=== PATIENT | female | born 1980 | race African-American/Black ===

== ENCOUNTER 2021-06-19 14:17 | Outpatient (CLI) | payer OTHER, SELFPAY | END 2021-06-19 14:18 | disposition home or self-care (01) | PROVIDERS: Visit Provider Nurse Practitioner Family | DX: H93.13 Tinnitus, bilateral (principal) | CPT/HCPCS: 92557; 92567 ==

== ENCOUNTER 2021-07-27 18:00 | Emergency (ER) | payer OTHER, SELFPAY ==
--- NOTE | ~2021-07-27 | XR_ITS ---
EXAMINATION: XR knee LT min 4V DATE: 07/27/2021 18:30 INDICATION: Left knee pain and numbness TECHNIQUE: Four views of the left knee were obtained. COMPARISON: None. FINDINGS: Alignment is normal. No fracture or osteochondral lesion. Joint spaces are normal with no e rosions. No joint effusion/synovitis. Soft tissues are unremarkable. IMPRESSION: 1. No acute osseous abnormality. Reviewed, dictated and finalized at location F.
--- NOTE | 2021-07-27 18:03 | ED.LOWEXIN ---
HPI - Extremity Injury (Lower) General Chief Complaint: Extremity Injury, Lower Stated Complaint: Lt Knee Pain/Numbness Time Seen by Provider: 07/27/21 18:15 Source: patient Mode of arrival: ambulatory Limitations: no limitations History of Present Illness HPI Narrative: Ms. Hutton is a 41-year-old female patient presenting to the clinic today with complaints of left knee pain and numbness going down her leg. She reports that this has been getting worse over the last 2 days however symptoms been ongoing for approximately 2 weeks now. She reports that this is now causing her to fall and she has had 2 falls last night and one fall this morning. She reports also that she is having difficulty walking upstairs and pain with squatting. Reports that 2 weeks ago she was having numbness and tingling in both feet. She denies any history of diabetes. Has had steroid knee injections to this knee before. Related Data Home Medications Medication Instructions Recorded Confirmed gabapentin 300 mg PO DAILY 07/27/21 07/27/21 hydroxychloroquine 200 mg PO DAILY 07/27/21 07/27/21 levetiracetam 500 mg PO BID 07/27/21 07/27/21 modafinil 200 mg PO DAILY 07/27/21 07/27/21 montelukast 10 mg PO DAILY 07/27/21 07/27/21 spironolacton-hydrochlorothiaz 1 tablet PO DAILY 07/27/21 07/27/21 sumatriptan succinate 100 mg PO DAILY 07/27/21 07/27/21 Allergies Allergy/AdvReac Type Severity Reaction Status Date / Time No Known Allergies Allergy Verified 07/27/21 18:19 Review of Systems Review of Systems: Pertinent positives per HPI. Patient denies any fever, chills, rash, headache, visual changes, dizziness, cough, runny nose, sore throat, shortness of breath, chest pain, palpitations, nausea, vomiting, diarrhea, constipation, abdominal pain, or any urinary issues. PMFSH Comments At the time of my signature, I reviewed and agree with the nursing past medical, surgical, social, and family history. There is no relevant family history pertinent to the patient complaint. Exam Narrative: General: Well-developed, well nourished, in no apparent distress Head: Normocephalic, atraumatic. Cardio: Regular rate and rhythm, s1 and s2 normal, no murmur appreciated. Resp: Clear to auscultation bilaterally, no rhonchi, rales, wheezing or rubs. Musculoskeletal: No deformity, tender to palpation over the anterior knee joint, grossly normal range of motion without crepitus felt, muscle strength strong and equal, peripheral pulse strong, no edema, no cyanosis, normal gait and station. Course Course Emergency Course: Portions of this record may have been created with voice recognition software. Level of Care: Express Care Visit Vital Signs Vital signs: Vital signs reviewed MDM - Extremity Injury (Lower) MDM Narrative Medical decision making narrative: At the time of visit patient is resting comfortably on the exam table. 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 There is no swelling to the knee joint or leg. Tenderness over the anterior knee/patella, pain is worse with going up stairs or squatting. Blood sugar is 91 in the office today she is currently taking gabapentin for restless leg syndrome. Radiologist read the x-ray as normal. I suspect that she may have some arthralgia versus a patellofemoral syndrome I will treat her with a course of prednisone to see if this alleviates her symptoms. If symptoms persist or worsen she should follow-up with her primary care provider or go to the emergency room. Supportive measures were discussed and she voiced understanding of discharge instructions Differential Diagnosis Differential diagnosis: Likely acute internal derangement of knee and other (Sciatica, diabetes, peripheral vascular disease, peripheral arterial disease, arthritis, chondromalacia, patellofemoral syndrome) Imaging Data Attestation: I personally reviewed
[2021-07-27 18:12] VITALS: BP 129/95; PULSE 88; RESP 18; TEMP 36.3; O2SAT 100
[2021-07-27 18:38] LABS: Glucose Point of Care 91 mg/dl (65-105)
== END 2021-07-27 18:48 | disposition home or self-care (01) ==
PROVIDERS: Emergency Provider Nurse Practitioner Family
DX: R20.2 Paresthesia of skin (principal); M25.562 Pain in left knee; I10 Essential (primary) hypertension; G25.81 Restless legs syndrome
CPT/HCPCS: 73564; 82948; 99213; G0463